=== PATIENT | male | born 1970 | race Caucasian/White ===

== ENCOUNTER 2018-11-26 01:08 | Emergency (ER) | payer OTHER ==
[2018-11-26] MEDS ORDERED: IBUPROFEN 600 MG TAB PO ONE (02:23)
--- NOTE | 2018-11-26 02:35 | EDPHY ---
H & P Stated Complaint: WOKE WITH CHEST TIGHTNESS, LEFT ARM PAIN/ACHES Time Seen by Provider: 11/26/18 01:17 HPI/ROS: Chief Complaint: Left arm pain HPI: 48-year-old male woke from sleep with his left arm aching. Patient states for the course of the last few weeks he has had episodes his left arm began to ache after no apparent cause. At worst is about a 3 or 4/10. He is unable to get comfortable this morning after waking up. Does radiate a little bit to his left neck. Is concerned might possibly represent heart disease. No central chest pain or shortness of breath. Does have a family history of his father having an bypass in his 50s however his father was obese and smoked heavily. The patient has never smoked. No fevers or chills. No cough. No shortness of breath. No nausea or vomiting. No aggravating or alleviating factors. ROS: 10 systems were reviewed and were negative except those elements noted in the HPI. PMH: Denies Social History: No smoking, occasional alcohol, occasional marijuana Family History: non-contributory Physical Exam: Gen: Awake, Alert, No Distress HEENT: Nose: no rhinorrhea Eyes: PERRLA, EOMI Mouth: Moist mucosa Neck: Supple, no JVD Chest: nontender, lungs clear to auscultation Heart: S1, S2 normal, no murmur Abd: Soft, non-tender, no guarding Back: no CVA tenderness, no midline tenderness Ext: no edema, non-tender Skin: no rash Neuro: CN II-XII intact, Sensation grossly intact, Strength 5/5 in bilateral upper and lower extremities - Personal History Current Tetanus/Diphtheria Vaccine: Unsure Current Tetanus Diphtheria and Acellular Pertussis (TDAP): Unsure - Medical/Surgical History Hx Asthma: No Hx Chronic Respiratory Disease: No Hx Diabetes: No Hx Cardiac Disease: No Hx Renal Disease: No Hx Cirrhosis: No Hx Alcoholism: No Hx HIV/AIDS: No Hx Splenectomy or Spleen Trauma: No Other PMH: KIDNEY STONES - Social History Smoking Status: Never smoked Constitutional: Initial Vital Signs Temperature (C) 36.5 C 11/26/18 01:09 Heart Rate 74 11/26/18 01:09 Respiratory Rate 18 11/26/18 01:09 Blood Pressure 159/83 H 11/26/18 01:09 O2 Sat (%) 96 11/26/18 01:09 O2 Delivery Mode Room Air Allergies/Adverse Reactions: No Known Allergies Allergy (Unverified 11/26/18 01:12) Home Medications: Medication Instructions Recorded NK [No Known Home Meds] 11/26/18 Medical Decision Making - Diagnostics EKG Interpretation: ECG time 1:15 a.m., sinus rhythm with a rate of 59, normal axis, normal intervals, no acute ST or T-wave changes. Impression: Normal ECG. ED Course/Re-evaluation: 48-year-old male woke with left arm pain. Normal ECG. Normal troponin. The patient exercises regularly and has family history of heart disease otherwise no risk factors. Never has anginal equivalent. Symptoms likely secondary to musculoskeletal pain. No evidence acute ACS at this time. Will repeat troponin in verify no change. Repeat troponin is negative. Patient has not had any chest pain. Just some arm aching. No ischemic changes on his ECG. Symptoms consistent with musculoskeletal arm pain will discharge with follow-up with primary care. - Data Points Laboratory Results: 11/26/18 01:22 POC Troponin I 0.00 ng/mL ng/mL (0.00-0.08) Medications Given: Discontinued Medications Ibuprofen (Motrin) 600 mg PO EDNOW ONE Stop: 11/26/18 02:24 Last Admin: 11/26/18 02:25 Dose: 600 mg Point of Care Test Results: Chemistry 11/26/18 01:22 POC Troponin I 0.00 ng/mL ng/mL (0.00-0.08) Departure - Departure Disposition: Home, Routine, Self-Care Clinical Impression: Arm pain Condition: Good Instructions: Arm Pain (ED) Additional Instructions: Follow up with primary care physician in 2-3 days for further evaluation. Return emergency department for worsening arm pain, chest pain, shortness of breath, lightheadedness, fainting, or any other concerns. Referrals: Arsh Garcia MD [Medical Doctor] - As per Instructions
--- NOTE | 2018-11-26 03:04 | CPEKG ---
Test Reason : OPEN Blood Pressure : / mmHG Vent. Rate : 059 BPM Atrial Rate : 058 BPM P-R Int : 157 ms QRS Dur : 095 ms QT Int : 413 ms P-R-T Axes : 049 069 050 degrees QTc Int : 410 ms Sinus rhythm Confirmed by Subhash Herrera ([id number] on 11/26/2018 3:03:54 AM Referred By: PHYSICIAN ED Confirmed By:Subhash Herrera
[2018-11-26 03:09] VITALS: BP 103/68
== END 2018-11-26 03:31 | disposition home or self-care (01) ==
DX: M79.602 Pain in left arm (principal); Z87.442 Personal history of urinary calculi
CPT/HCPCS: 84484-ER